=== PATIENT | male | born 1980 | race African-American/Black ===

== ENCOUNTER 2016-09-30 23:25 | Inpatient (IN) | payer OTHER ==
--- NOTE | ~2016-09-30 | CO ---
Unit #: [id number] #: [id number] Patient: LEATHA THOMPSON [id number] [address] [place], [place] [address] [id number] I MR#: [id number] NAME: LEATHA THOMPSON ROOM: 215 Age: 36 Sex: M Admission Date: 10/01/2016 : 1980 Attending Physician: Yojana Nowak M.D. Consultation Date: 10/01/2016 CONSULTATION REPORT REASON FOR CONSULTATION Diabetic ketoacidosis. HISTORY OF PRESENT ILLNESS Mr. Clive Abdi is a 36-year-old, black male, who has a history of type 1 diabetes mellitus, multiple admissions with diabetic ketoacidosis, history of alcohol abuse, poor compliance, who presented to the emergency room with a chief complaint of nausea, vomiting, or abdominal pain, unable to keep anything p.o. for 4 days duration. I am not sure if the patient has been taking his insulin or not in this admission. He has been found to have the abnormal labs. On his labs, he was found to be blood glucose level of above 1000 and acute renal failure with creatinine of 2.2 and severe diabetic ketoacidosis with severe metabolic acidosis and hyperkalemia, has been started on insulin drip and IV fluids and transferred to the unit bed. I have been asked to see the patient. He is sleeping at this time. REVIEW OF SYSTEMS The patient is sleeping, unable to obtain the review of systems from the patient. MEDICAL HISTORY Please see HPI. HOME MEDICATIONS I am not sure how much insulin the patient is taking at this time at home. SOCIAL HISTORY He continues to use tobacco and alcohol. Denies any illicit drugs. PHYSICAL EXAMINATION GENERAL: He is lying comfortably in the bed. No acute distress. VITAL SIGNS: Temperature 98.3, pulse 86, respirations 15, blood pressure 147/78. HEENT: EOMI. Pupils are equally reactive to light. NECK: Supple. No thyromegaly noted. CHEST: Good air entry. CVS: Regular rhythm. No murmurs. S1, S2. ABDOMEN: Soft and nontender. Bowel sounds positive. EXTREMITIES: No ulcers noted. No amputations. DIAGNOSTIC STUDIES LABORATORY RESULTS: Reviewed on admission. Currently, the patient's glucose is 285, BUN is 32, creatinine 1.3, CO2 is 13, total bilirubin is Unit #: [id number] #: [id number] Patient: LEATHA THOMPSON 9.4, albumin is 5.3, positive ketones, lactic acid 2.9, A1c is 11.2, bicarb is 13. ASSESSMENT 1. Diabetic ketoacidosis, improving. 2. Acute kidney injury, improving. 3. Hyperkalemia, resolved. 4. Alcohol abuse. 5. 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 PLAN Continue insulin drip at this point. Continue IV hydration. Monitor electrolytes. Replace potassium, magnesium and phosphorus as needed. Accu-Cheks every hourly. Once the patient is awake and alert, and able to take p.o. and his DKA has resolved, will be switched to the subcu insulin and diet will be initiated. Thanks again for consultation. Dictated by... Froylan Justice/jd TD: 10/02/2016 05:50 JOB #: [id number] CONSULTATION REPORT Page 1 of 1 X Giovanna Beatty MD X CONSULTATION REPORT
--- NOTE | ~2016-09-30 | DS ---
Unit #: [id number] #: [id number] Patient: LEATHA THOMPSON [id number] [address] [address] [id number] I MR#: [id number] NAME: LEATHA THOMPSON ROOM: 215 Age: 36 Sex: M Admission Date: 10/01/2016 : 1980 Discharge Date: 10/03/2016 Attending Physician: Yojana Nowak M.D. Primary Care Physician: No Primary Care Physician DISCHARGE SUMMARY FINAL DIAGNOSES 1. Diabetic ketoacidosis which is resolved. 2. Uncontrolled diabetes mellitus type 1. 3. Abdominal pain, possible gastroparesis. 4. Nausea/vomiting which is improved. 5. Acute kidney failure which is improved. 6. Alcohol abuse. 7. Tobacco abuse. LAB WORKUP ON DISCHARGE BUN 16, creatinine 0.8. On admission, patient's BUN was 47 and creatinine was 2.2. Blood cultures - no growth. CBC shows WBC 6.1, hemoglobin 11.4, hematocrit 36.6, platelet count of 160. Lactic acid on admission was 2.6. Hemoglobin A1c 11.2. HOSPITAL COURSE Mr. Leatha Thompson is a 36-year-old -[place] male who has a history of type 1 diabetes mellitus and multiple admissions with diabetic ketoacidosis, history of alcohol abuse, history of poor compliance, presented to ER with a complaint of nausea, vomiting and abdominal pain. The patient was unable to keep anything p.o. for a few days. He was found to be in DKA. Patient's creatinine was 2.2. He had severe diabetic ketoacidosis with severe metabolic acidosis and hyperkalemia. The patient was started on insulin drip and IV fluids and transferred to unit. Dr. Beatty was consulted. Medications were adjusted as per his conditions. The patient is being discharged home as he is stable at this time on above medications: 1. Folic acid 1 mg p.o. daily. 2. Thiamine 100 mg p.o. daily. 3. Insulin will be as per Dr. Beatty but his home dose is Novolin 70/30, 30 units subcu daily, and NovoLog 10 units subcu with meals and NovoLog sliding scale. Tobacco cessation counseling has been done. The patient received nicotine patch during hospitalization. Unit #: [id number] #: [id number] Patient: LEATHA THOMPSON Alcohol cessation counseling has been done. EXAMINATION ON DISCHARGE Blood pressure 153/83, respiratory rate 20, pulse is 77, temperature 99.1. CHEST has fair air entry, no additional sounds. CVS is regular. ABDOMEN is soft. No tenderness. DISCHARGE INSTRUCTIONS 1. The patient is being discharged home in stable condition. Follow up with primary care provider in one week. 2. Tobacco cessation counseling done. Dictated by... Yojana Nowak M.D. ELDA/braulio TD: 10/04/2016 07:31 JOB #: [id number] DISCHARGE SUMMARY Page 1 of 1 X Yojana Nowak MD X DISCHARGE SUMMARY
--- NOTE | ~2016-09-30 | HP ---
Unit #: [id number] #: [id number] Patient: LEATHA THOMPSON [id number] [address] [place], [place] [address] [id number] I MR#: [id number] NAME: LEATHA THOMPSON. ROOM: [facility] Age: 36 Sex: M Admission Date: 10/01/2016 : 1980 Attending Physician: Yojana Nowak M.D. Primary Care Physician: Primary Care Physician No HISTORY AND PHYSICAL CHIEF COMPLAINT Abdominal pain and vomiting. HISTORY OF PRESENT ILLNESS This 36-year-old male with history of diabetes mellitus type 1 has had multiple admissions because of DKA. The patient has not been feeling well for the last four days. He started having vomiting, one whole day he was vomiting. Then, after that vomiting stopped, started having abdominal pain. It was waxing and waning and he could not tolerate it. EMS was called and patient was brought to ER and was admitted to ICU for diabetic ketoacidosis. According to him, he still has abdominal pain but it has improved. He is still feeling very nauseous, he needs some medications. His vomiting did have some blood streaks. He has not been able to eat for the last few days. PAST MEDICAL HISTORY 1. Diabetes mellitus type 1. 2. Alcohol abuse. PAST SURGICAL HISTORY History of left rotator cuff repair. HOME MEDICATIONS 1. NovoLog 10 units subcu with meals. 2. Novolin 70/30 subcu daily. ALLERGIES No known drug allergies but oxycodone causes nausea. SOCIAL HISTORY The patient has history of alcohol abuse. He drinks a lot according to the who is in the room. He has not had drinks for the last one week. He smokes one-half pack per day, has been smoking for some time. No history of drug abuse. FAMILY HISTORY Patient's uncle has diabetes mellitus. REVIEW OF SYSTEMS CONSTITUTIONAL: No history of fever, chills, or rigors. No dizziness or syncopal episode. No history of ENT: No ear, nose, throat problem. CARDIOVASCULAR: No history of chest pain. No history of palpitations. No dizziness or syncopal episode. Unit #: [id number] #: [id number] Patient: LEATHA THOMPSON GASTROINTESTINAL: No history of diarrhea or constipation. GENITOURINARY: No history of polyuria or dysuria. SKIN: No history of any skin problem. PHYSICAL EXAMINATION VITAL SIGNS: Blood pressure 142/77, respiratory rate 18, pulse 92, temperature 97.7. GENERAL: The patient is being evaluated in room 21, ICU. Seems to be stable. Patient is very drowsy and sleepy. HEAD: Normocephalic. Eye movements are normal. NECK: Supple. No carotid bruits, no thyromegaly. Trachea is midline. CHEST: Fair air entry, no additional sounds. HEART: S1, S2 positive, regular rhythm, tachycardia. ABDOMEN: Soft, mild tenderness. Bowel sounds are positive in all quadrants. EXTREMITIES: Negative edema. Pulses are palpable. NEUROLOGIC: Awake, alert, oriented x3. No focal neurologic deficit. DIAGNOSTIC STUDIES LABORATORY: Urinalysis shows more than 1000 glucose. ABG shows pH 7.12, pCO2 of 15.5, oxygen saturation 95%. Lactic acid 2.9. WBC 6.3, hemoglobin 13.5, hematocrit 44.8, platelet count 233. Sodium 127, potassium 6.0, chloride 86, BUN 47, creatinine 2.2, ASSESSMENT AND PLAN The patient is being admitted to ICU with: 1. Diabetic ketoacidosis. 2. Acute renal failure secondary to decreased intravascular volume. 3. Intractable vomiting and abdominal pain. 4. Alcohol abuse. PLAN 1. Admit to ICU. 2. Dr. Beatty has been consulted. 3. Patient is being started on insulin drip. 4. IV Zofran on a p.r.n. basis. 5. Patient is n.p.o. 6. IV fluids are being given. 7. Alcohol cessation counseling done. 8. Please refer to progress note for further orders. 9. Plan of care has been discussed with patient. Dictated by Yojana Nowak M.D. Unit #: [id number] #: [id number] Patient: LEATHA THOMPSON ELDA/blanca TD: 10/01/2016 20:08 JOB #: [id number] HISTORY AND PHYSICAL Page 1 of 1 X Yojana Nowak MD HISTORY AND PHYSICAL
--- NOTE | ~2016-09-30 | CR72 ---
[facility] A Service of [facility] & [facility] RADIOLOGY TEXT RESULTS PATIENT: LEATHA THOMPSON LOCATION: [place] [address] : [birth year] UNIT #: [id number] AGE: [address]: Yojana Nowak MD SEX: M ORDER DR: [id number] [facility] [address] [address] [facility]. [place], [place] [address] [id number] I MR#: [id number] Acc #: [id number] NAME: LEATHA THOMPSON. : 1980 SEX: M STUDY DATE/TIME: 10/01/2016 4:01 UNIT: [facility] ROOM: [facility] STUDY DESCRIPTION: CR Chest Single View Portable Attending Physician: Yojana Nowak M.D. Ordering Physician: Yojana Nowak M.D. Primary Care Physician: Primary Care Physician No MEDICAL IMAGING REPORT This report is preliminary unless electronic signature is present EXAM AP portable chest 10/01/2016 HISTORY 36-year-old male with diabetic ketoacidosis, chest pain. Symptoms present since Tuesday. COMPARISON AP portable chest 07/17/2015. FINDINGS A single AP portable view of the chest shows both lungs to be clear. The heart is normal in size. The mediastinal contour is normal. No significant bone abnormalities are seen. IMPRESSION Normal portable chest. Dictated by... Lisbeth Harris M.D. THIS IS AN ELECTRONICALLY VERIFIED REPORT Lisbeth Harris M.D. at 10/06/2016 4:12 PM SUPRIYA/jere TD: 10/01/2016 09:16 JOB #: [id number] MEDICAL IMAGING REPORT Page 1 of 1 COPY
--- NOTE | ~2016-09-30 | EKG ---
PATIENT: LEATHA THOMPSON UNIT #: [id number] Ventricular Rate: 117 BPM Atrial Rate: 117 BPM P-R Interval: 130 ms QRS Duration: 80 ms Q-T Interval: 304 ms QTC Calculation(Bezet): 424 ms Calculated R [place]: 132 degrees Calculated T [place]: 62 degrees Diagnosis Line: Suspect arm lead reversal, interpretation Diagnosis Line: assumes no reversal Diagnosis Line: Sinus tachycardia Diagnosis Line: Lateral infarct , age undetermined Diagnosis Line: Abnormal ECG Diagnosis Line: No previous ECGs available Diagnosis Line: Confirmed by LUIS ALBERTO MURILLO MD ([id number]) on 10/03/2016 Diagnosis Line: 4:01:37 PM INTERPRETING MD: LIDIA MORRELL
--- NOTE | ~2016-09-30 | A ---
[facility] Nutrition Therapy DATE: 10/01/16 Patient: LEATHA THOMPSON Physician: CARLIN Address: [address] [facility] Room/Bed: [address], Zip: [place] [address] Admit Date: 10/01/16 Date of : [birth year] Height: 5 6 Weight: 128 58.5 NUTRITIONAL ASSESSMENT: REASON: Seen due to NPO status in ICU, Dx Admitting Dx: 36 y/o male admitted with DKA PMH: (No new H&P) DKA, T1DM, daily ETOH use, tobacco use Anthropometrics: Ht: 66", Wt: 58.5 kg (128 lbs), BMI: 20 (normal) Past weights: 128-160 lbs Labs: Na 130, K+ 5.4, Glucose 825, POC 313-551, BUN 45, Creat 2.2, Phos 6.6, GFR 43.1, A1C pending Meds: Zofran prn, PPI, Nacl, insulin drip, D50/5 w/ Nacl I/O & Bowel function: No shift assessment available yet Skin Integrity: No shift assessment available yet Assessment: Chart reviewed, events noted. Patient with prior admission for DKA, RD assessed on 03/05/15 for DKA and provided diet education, however the patient has received diet education multiple times before. No updated H&P or shift assessment available yet. Per RN patient states he had a recent adjustment to his insulin regimen as outpatient, not a non-compliant patient, very pleasant. Patient sleeping at time of RD visit to room, is currently NPO. Dr. Beatty has been consulted for DM management, patient will likely downgrade today if anion gap closes. Patient also has acute renal failure (see labs). RD will follow hospital course. Dx: Altered nutrition related lab values r/t inappropriate insulin regimen/administration AEB DKA, glucose POC 313-551 mg/dL. Intervention: Advance to 60g carb diet as tolerated, optimize insulin regimen, diet Ed? Monitoring, Evaluation and Goals: 1. Tolerance of diet advancement. 2. Maintain weight status. 3. Improvement in labs (glucose, check A1C, BUN/creat, lytes, GFR). 4. Understanding of consistent carb diet education and proper insulin dosing. Monitor: Per protocol, criteria to determine if above goals met [facility] Nutrition Therapy DATE: 10/01/16 Patient: LEATHA THOMPSON Physician: CARLIN Address: [address] [facility] Room/Bed: [address], Zip: [place] [address] Admit Date: 10/01/16 Date of : [birth year] Height: 5 6 Weight: 128 58.5 Recommendations: 1. Advance to 60g carb diet as tolerated. Will f/u to check A1C (pending at this time). 2. Optimize insulin regimen to promote adequate blood glucose control. Provided any additional insulin dosing education as needed. 3. Will offer diet education at follow-up. Patient has been educated multiple times before. Moderate nutrition risk Respectfully, Saida Bynum RD, LD [employer] [facility] [employer] cc: client file
[~2016-09-30 23:25] MED LIST: FAMOTIDINE PO; HUMULIN 70100 UNITS/ SUBQ; HYDROCHLOROTH12.5 MG PO; KETOPROFEN PO; LANTUS SOLOSTAR3 ML SUBQ; LEVEMIR SUBQ; METFORMIN PO; NEURONTIN300 MG PO; NORCO 5/325 TAB1 TAB PO; NOVOLIN 70/30 V10 M1 SUBQ; NOVOLIN 70100 UNITS/ SUBQ; NOVOLIN R100 UNITS/; NOVOLOG FL100 UNIT/1 SUBQ; NOVOLOG100 U/ML SUBQ; TIZANIDINE HCL4 M1 PO; VICODIN PO; ZESTRIL40 MG PO
[2016-09-30 23:40] LABS: URINE SOURCE CLEAN CATCH
[2016-09-30 23:47] LABS: URINE APPEARANCE CLEAR; URINE BILIRUBIN NEG (NEG); URINE BLOOD TRACE (NEG); URINE COLOR YELLOW; URINE GLUCOSE >1000 MG/DL (NEG); URINE KETONE 3+ (NEG); URINE LEUKOCYTE ESTERASE NEG (NEG); URINE NITRATE NEG (NEG); URINE PROTEIN NEG (NEG); URINE SPECIFIC GRAVITY 1.029 (1.003-1.035); URINE UROBILINOGEN 0.2 MG/DL (NEG)
[2016-09-30 23:53] LABS: URBCS1 AUWI 0-2 /[HPF] (0-2); URINE BACTERIA AUWI NEG (NEGATIVE); URINE SQUAMOUS EPITHELIAL CELL NONE SEEN /[HPF]; UWBCS1 AUWI 0-2 (0-5)
[2016-10-01 00:05] LABS: CULTURE INDICATED? NO
[2016-10-01 01:37] LABS: ARTERIAL BLOOD GAS CARBOXY HB 1.7 %sat (0.0-9.0); ARTERIAL BLOOD GAS HCO3 5.1 mmol/L; ARTERIAL BLOOD GAS MET HB 1.1 %sat (0.0-2.0)
[2016-10-01 01:38] LABS: ARTERIAL BLOOD GAS pH 7.129 (7.350-7.450)
[2016-10-01 01:39] LABS: ARTERIAL BLOOD GAS ALLEN TEST NORMAL; ARTERIAL BLOOD GAS ART SITE LEFT RADIAL; ARTERIAL BLOOD GAS PCO2 15.5 mmHg (35.0-45.0); ARTERIAL DRAW? YES
[2016-10-01 02:34] LABS: BASOPHIL% 0.1 % (0-2.5); HEMOGLOBIN 13.5 gm/dL (13.0-16.0); LYMPHOCYTE# 0.3 X10e3 (1.0-3.5); MEAN PLATELET VOLUME 10.9 FL (6.5-11.5); MONOCYTE# 0.5 X10e3 (0-1.0); NEUTROPHIL# 5.4 X10e3 (1.5-7.1); NEUTROPHIL% 86.9 % (40-75); PLATELET COUNT 233 X10e3 (140-420); RED BLOOD COUNT 5.56 X10e (3.90-5.60); WHITE BLOOD COUNT 6.3 X10e3 (4.0-10.5)
[2016-10-01 02:54] LABS: HEMATOCRIT 44.8 % (38.0-50.0)
[2016-10-01 02:55] LABS: MEAN CELL VOLUME 80.5 FL (83-96); MEAN CORPUSCULAR HGB CONC 30.1 g/dL (30-36)
[2016-10-01 02:56] LABS: DIFF IND NO; MEAN CORPUSCULAR HEMOGLOBIN 24.3 PG (28-34)
[2016-10-01 03:00] LABS: ALBUMIN SERUM 5.3 g/dL (3.5-5.0); ALKALINE PHOSPHATASE 84 U/L (32-92); ALT (SGPT) 18 U/L (10-40); AST (SGOT) 14 U/L (10-42); BILIRUBIN, DIRECT 0.1 mg/dL (0.0-0.2); BILIRUBIN,INDIRECT 1.9 mg/dL (0.0-0.9); BLOOD UREA NITROGEN 47 mg/dL (9-23); BUN/CREATININE RATIO 21.36; CALCIUM SERUM 9.8 mg/dL (8.4-10.2); CHLORIDE 86 mmol/L (100-111); CREATININE SERUM 2.2 mg/dL (0.6-1.4); GLOM FILT RATE Estimated 43.1 mL/min (>60); LIPASE 13 U/L (22-51); PROTEIN TOTAL SERUM 9.4 g/dL (6.0-8.3); SODIUM 127 mmol/L (135-145)
[2016-10-01 03:01] LABS: ALCOHOL BLOOD <5 mg/dL (0); AMYLASE 5 U/L (0-46); CARBON DIOXIDE 7 mmol/L (22-31); GLUCOSE FASTING 1009 mg/dL (70-110)
[2016-10-01 03:04] LABS: POC - CKMB 1.7 ng/mL (0.0-7.9); POC - TROPONIN <0.05 ng/mL (<=0.05)
[2016-10-01 06:19] LABS: BETA HYDROXYBUTYRATE 14.69 MMOL/L (0.02-0.27); BUN/CREATININE RATIO 20.45; CALCIUM SERUM 9.1 mg/dL (8.4-10.2); CREATININE SERUM 2.2 mg/dL (0.6-1.4); GLOM FILT RATE Estimated 43.1 mL/min (>60); POTASSIUM 5.4 mmol/L (3.5-5.1)
[2016-10-01 11:36] LABS: BUN/CREATININE RATIO 24.61; CALCIUM SERUM 8.5 mg/dL (8.4-10.2); CREATININE SERUM 1.3 mg/dL (0.6-1.4); GLOM FILT RATE Estimated 81.4 mL/min (>60); POTASSIUM 4.9 mmol/L (3.5-5.1)
[2016-10-01 16:59] LABS: BUN/CREATININE RATIO 26.66; CALCIUM SERUM 8.7 mg/dL (8.4-10.2); CREATININE SERUM 0.9 mg/dL (0.6-1.4); GLOM FILT RATE Estimated 126.9 mL/min (>60)
[2016-10-01 17:00] LABS: POTASSIUM 3.2 mmol/L (3.5-5.1)
[2016-10-01 23:53] LABS: PHOSPHOROUS 1.1 mg/dL (2.5-4.6); POTASSIUM 3.8 mmol/L (3.5-5.1)
[2016-10-02 04:07] LABS: BASOPHIL% 0.4 % (0-2.5); EOSINOPHIL# 0.1 X10e3 (0-0.7); EOSINOPHIL% 0.9 % (0.0-7.0); HEMATOCRIT 36.6 % (38.0-50.0); LYMPHOCYTE# 1.4 X10e3 (1.0-3.5); MEAN CORPUSCULAR HEMOGLOBIN 24.3 PG (28-34); MEAN CORPUSCULAR HGB CONC 31.2 g/dL (30-36); MONOCYTE# 0.6 X10e3 (0-1.0); MONOCYTE% 9.4 % (3.0-12.0); NEUTROPHIL% 66.3 % (40-75); PLATELET COUNT 160 X10e3 (140-420); RED BLOOD COUNT 4.69 X10e (3.90-5.60); RED CELL DISTRIBUTION WIDTH 13.5 % (11.0-15.5); WHITE BLOOD COUNT 6.1 X10e3 (4.0-10.5)
[2016-10-02 04:08] LABS: DIFF IND NO; HEMOGLOBIN 11.4 gm/dL (13.0-16.0)
[2016-10-02 04:31] LABS: CREATININE SERUM 0.8 mg/dL (0.6-1.4); GLOM FILT RATE Estimated 133.3 mL/min (>60); MAGNESIUM 2.1 mg/dL (1.6-3.0); POTASSIUM 3.7 mmol/L (3.5-5.1)
[2016-10-03 05:50] LABS: CALCIUM SERUM 9.5 mg/dL (8.4-10.2); CREATININE SERUM 0.8 mg/dL (0.6-1.4); GLOM FILT RATE Estimated 133.3 mL/min (>60); MAGNESIUM 2.1 mg/dL (1.6-3.0); POTASSIUM 3.4 mmol/L (3.5-5.1)
[2016-10-03] MEDS ORDERED: FOLIC ACID1 MG PO (15:36)
[2016-10-03] MEDS ORDERED: THIAMINE HCL100 M1 PO (15:38)
== END 2016-10-03 17:34 | disposition home or self-care (01) | DRG 638 ==
LOC: CED 23:25 → CEDOF 10-01 03:20 → CICCU3 10-01 06:50 → C2A 10-02 04:44
PROVIDERS: Emergency Medicine; Physician Assistant Medical
DX: E10.10 Type 1 diabetes mellitus with ketoacidosis without coma (principal); N17.9 Acute kidney failure, unspecified; K31.84 Gastroparesis; E10.43 Type 1 diabetes mellitus with diabetic autonomic (poly)neuropathy; E87.5 Hyperkalemia; Z79.4 Long term (current) use of insulin; F10.10 Alcohol abuse, uncomplicated; F17.210 Nicotine dependence, cigarettes, uncomplicated; K70.9 Alcoholic liver disease, unspecified; Z71.41 Alcohol abuse counseling and surveillance of alcoholic; Z71.6 Tobacco abuse counseling; Z83.3 Family history of diabetes mellitus
CPT/HCPCS: 36600; 71010; 80048; 80076; 81003; 82010; 82150; 82553; 82803; 82947; 83036; 83605; 83690; 83735; 84100; 84132; 84484; 85025; 87040; 93005; 96361; 96374; 96375; 99284; C9113; G0480; J1815; J2405

== ENCOUNTER 2016-10-30 16:55 | Emergency (ER) | payer OTHER ==
--- NOTE | ~2016-10-30 | CR72 ---
[facility] A Service of [facility] & [facility] RADIOLOGY TEXT RESULTS PATIENT: LEATHA THOMPSON LOCATION: [facility] : [birth year] UNIT #: [id number] AGE: [address]: Kristin Miles MD SEX: M ORDER DR: [id number] [facility] [address] [place], [place] [address] [id number] E MR#: [id number] Acc #: [id number] NAME: LEATHA THOMPSON : 1980 SEX: M STUDY DATE/TIME: 10/30/2016 18:39 UNIT: [facility] ROOM: STUDY DESCRIPTION: CR Chest Single View Portable Attending Physician: Kristin Miles M.D. Ordering Physician: Kristin Miles M.D. Primary Care Physician: No Primary Care Physician MEDICAL IMAGING REPORT This report is preliminary unless electronic signature is present EXAM Chest portable 10/30/2016 1839 hours HISTORY 36-year-old man with complaint of shortness of air with syncopal episode today. COMPARISON 10/01/2016 FINDINGS A single upright portable view demonstrates normal cardiac, mediastinal and hilar contours. There are a few scattered calcified granulomata in the lungs which are stable. There is no acute pulmonary density, pleural effusion or pneumothorax. IMPRESSION No acute cardiopulmonary findings. No appreciable change from 10/01/2016. Dictated by... Mita Heath M.D. THIS IS AN ELECTRONICALLY VERIFIED REPORT Mita Heath M.D. at 10/31/2016 6:58 PM RAINA/german TD: 10/31/2016 04:27 JOB #: [id number] MEDICAL IMAGING REPORT Page 1 of 1 COPY
--- NOTE | ~2016-10-30 | EKG ---
PATIENT: LEATHA THOMPSON UNIT #: [id number] Ventricular Rate: 72 BPM Atrial Rate: 72 BPM P-R Interval: 142 ms QRS Duration: 80 ms Q-T Interval: 398 ms QTC Calculation(Bezet): 435 ms P Pollock: 75 degrees Calculated R Pollock: 88 degrees Calculated T Pollock: 5 degrees Diagnosis Line: Normal sinus rhythm with sinus arrhythmia Diagnosis Line: Normal ECG Diagnosis Line: When compared with ECG of 30-SEP-2016 23:16, Diagnosis Line: Vent. rate has decreased BY 45 BPM Diagnosis Line: QRS axis Shifted left Diagnosis Line: T wave inversion now evident in Inferior leads Diagnosis Line: T wave amplitude has decreased in Anterior leads Diagnosis Line: Confirmed by RALPH BELLA MD ([id number]) on Diagnosis Line: 10/31/2016 10:05:37 PM INTERPRETING MD: HAYDEE
--- NOTE | ~2016-10-30 | CT71 ---
[facility] A Service of [facility] / [facility] RADIOLOGY TEXT RESULTS PATIENT: LEATHA THOMPSON LOCATION: [facility] : [birth year] UNIT #: [id number] AGE: [address]: Kristin Miles MD SEX: M ORDER DR: [id number] [facility] [address] [place], [place] [address] [id number] E MR#: [id number] Acc #: [id number] NAME: LEATHA THOMPSON. : 1980 SEX: M STUDY DATE/TIME: 10/30/2016 21:14 UNIT: [facility] ROOM: STUDY DESCRIPTION: CT Head Wo Contrast Attending Physician: Kristin Miles M.D. Ordering Physician: Kristin Miles M.D. Primary Care Physician: No Primary Care Physician MEDICAL IMAGING REPORT This report is preliminary unless electronic signature is present EXAM CT head. HISTORY Syncope at work, fell, hit back of head, 10/30/2016. TECHNIQUE CT head performed skull base through vertex without intravenous contrast. This CT exam was performed with one or more of the following radiation dose reduction techniques: automatic exposure control, adjustment of mA and/or kV according to patient size, and iterative reconstruction. COMPARISON 02/26/2014 FINDINGS Brainstem unremarkable. Cerebellum and cerebral hemispheres show normal acosta matter-white matter differentiation. No hemorrhage. No evidence of acute cortical ischemia. Midline structures nondisplaced. Basal ganglia intact. Ventricles, cisterns, and sulci normal in size and contour. No intra or extraaxial mass effect. No abnormal intracranial fluid collection. There is a curvilinear density superimposed over the right superolateral eyeball closely associated with insertion of the right lateral rectus muscle. This is new compared to prior examination. Please correlate with any ocular intervention. This does not have an appearance typical for hemorrhage. There is no history given of orbital trauma. Remainder of the intraorbital soft tissues are unremarkable. No periorbital soft tissue abnormality. No fracture. Visualized paranasal sinuses and mastoid air cells are clear. IMPRESSION 1. Brain appears normal. If patient has ongoing neurologic symptoms, [facility] A Service of [facility] RADIOLOGY TEXT RESULTS PATIENT: LEATHA THOMPSON [facility] [id number] : [birth year] UNIT #: [id number] AGE: [address]: Kristin Miles MD SEX: M ORDER DR: consider follow up imaging. 2. No fracture. 3. Well-delineated curvilinear radiodensity along the superolateral aspect of the right eyeball, closely associated with insertion of the right lateral rectus muscle. This does not have the appearance of traumatic hemorrhage and there is no other soft tissue abnormality in this region. This is new compared to 2013. I favor that this is some form of ophthalmic implant. Please correlate with ophthalmic history. Dictated by... Jimbo Zelaya M.D. THIS IS AN ELECTRONICALLY VERIFIED REPORT Jimbo Zelaya M.D. at 11/01/2016 11:31 AM SARBJIT/dami TD: 10/31/2016 08:41 JOB #: [id number] MEDICAL IMAGING REPORT Page 1 of 1 COPY
[~2016-10-30 16:55] MED LIST changes: +FOLIC ACID1 MG PO; +THIAMINE HCL100 M1 PO
[2016-10-30 18:40] LABS: BASOPHIL% 0.4 % (0-2.5); EOSINOPHIL# 0.1 X10e3 (0-0.7); HEMATOCRIT 31.1 % (38.0-50.0); HEMOGLOBIN 9.5 gm/dL (13.0-16.0); LYMPHOCYTE# 1.2 X10e3 (1.0-3.5); LYMPHOCYTE% 32.8 % (17.0-45.0); MEAN CELL VOLUME 83.3 FL (83-96); MEAN CORPUSCULAR HEMOGLOBIN 25.5 PG (28-34); MEAN CORPUSCULAR HGB CONC 30.6 g/dL (30-36); MEAN PLATELET VOLUME 10.4 FL (6.5-11.5); MONOCYTE# 0.4 X10e3 (0-1.0); NEUTROPHIL# 1.9 X10e3 (1.5-7.1); NEUTROPHIL% 52.8 % (40-75); PLATELET COUNT 166 X10e3 (140-420); RED BLOOD COUNT 3.74 X10e (3.90-5.60); RED CELL DISTRIBUTION WIDTH 18.3 % (11.0-15.5); WHITE BLOOD COUNT 3.7 X10e3 (4.0-10.5)
[2016-10-30 18:44] LABS: DIFF IND NO
[2016-10-30 19:04] LABS: URINE SOURCE CLEAN CATCH
[2016-10-30 19:12] LABS: ALBUMIN SERUM 4.1 g/dL (3.5-5.0); ALKALINE PHOSPHATASE 49 U/L (32-92); ALT (SGPT) 10 U/L (10-40); AST (SGOT) 16 U/L (10-42); BILIRUBIN,TOTAL 0.9 mg/dL (0.2-2.0); BLOOD UREA NITROGEN 9 mg/dL (9-23); BUN/CREATININE RATIO 11.25; CALCIUM SERUM 9.2 mg/dL (8.4-10.2); CARBON DIOXIDE 28 mmol/L (22-31); CHLORIDE 100 mmol/L (100-111); CREATININE SERUM 0.8 mg/dL (0.6-1.4); GLOM FILT RATE Estimated 133.3 mL/min (>60); GLUCOSE FASTING 419 mg/dL (70-110); POTASSIUM 4.3 mmol/L (3.5-5.1); PROTEIN TOTAL SERUM 6.8 g/dL (6.0-8.3); SODIUM 136 mmol/L (135-145)
[2016-10-30 19:14] LABS: BILIRUBIN, DIRECT <0.1 mg/dL (0.0-0.2); BILIRUBIN,INDIRECT 0.8 mg/dL (0.0-0.9)
[2016-10-30 19:24] LABS: POC - CKMB <1.0 ng/mL (0.0-7.9); POC - TROPONIN <0.05 ng/mL (<=0.05)
[2016-10-30 19:32] LABS: URINE APPEARANCE CLEAR; URINE BILIRUBIN NEG (NEG); URINE BLOOD NEG (NEG); URINE COLOR YELLOW; URINE GLUCOSE >1000 MG/DL (NEG); URINE KETONE NEG (NEG); URINE LEUKOCYTE ESTERASE NEG (NEG); URINE NITRATE NEG (NEG); URINE PH 5.5 (5-8); URINE PROTEIN NEG (NEG); URINE SPECIFIC GRAVITY 1.036 (1.003-1.035); URINE UROBILINOGEN 0.2 MG/DL (NEG)
[2016-10-30 19:41] LABS: CULTURE INDICATED? NO
[2016-10-30 19:46] LABS: AMPHETAMINE NEG (NEG); BARBITURATES NEG (NEG); BENZODIAZEPINES NEG (NEG); COCAINE NEG (NEG); MARIJUANA NEG (NEG); OPIATES NEG (NEG); TRICYCLIC ANTIDEPRESSANTS NEG (NEG); U METHADONE NEG (NEG)
[2016-10-30 20:03] LABS: POC - CKMB <1.0 ng/mL (0.0-7.9); POC - TROPONIN <0.05 ng/mL (<=0.05)
== END 2016-10-30 22:45 | disposition home or self-care (01) ==
LOC: CED 16:55
PROVIDERS: Emergency Medicine
DX: R73.9 Hyperglycemia, unspecified (principal); R55 Syncope and collapse; W19.XXXA Unspecified fall, initial encounter; Y92.69 Other specified industrial and construction area as the place of occurrence of the external cause; Y99.0 Civilian activity done for income or pay
CPT/HCPCS: 36415; 70450; 71010; 80048; 80076; 80307; 81003; 82553; 82947; 84484; 85025; 93005; 96361; 96374; 99284

== ENCOUNTER 2016-12-15 22:29 | Emergency (ER) | payer OTHER ==
[~2016-12-15] VITALS: Ht 170.2 cm; Wt 63.5 kg
[2016-12-16 02:28] LABS: BASOPHIL% 0.4 % (0-2.5); EOSINOPHIL% 1.1 % (0.0-7.0); HEMATOCRIT 38.3 % (38.0-50.0); HEMOGLOBIN 11.8 gm/dL (13.0-16.0); LYMPHOCYTE# 2.2 X10e3 (1.0-3.5); LYMPHOCYTE% 49.8 % (17.0-45.0); MEAN CELL VOLUME 79.5 FL (83-96); MEAN CORPUSCULAR HEMOGLOBIN 24.4 PG (28-34); MEAN CORPUSCULAR HGB CONC 30.7 g/dL (30-36); MEAN PLATELET VOLUME 9.8 FL (6.5-11.5); MONOCYTE# 0.2 X10e3 (0-1.0); MONOCYTE% 5.6 % (3.0-12.0); NEUTROPHIL# 1.9 X10e3 (1.5-7.1); NEUTROPHIL% 43.1 % (40-75); PLATELET COUNT 132 X10e3 (140-420); RED BLOOD COUNT 4.81 X10e (3.90-5.60); RED CELL DISTRIBUTION WIDTH 14.2 % (11.0-15.5); WHITE BLOOD COUNT 4.4 X10e3 (4.0-10.5)
[2016-12-16 02:29] LABS: DIFF IND NO
[2016-12-16 03:10] LABS: ALBUMIN SERUM 4.4 g/dL (3.5-5.0); BILIRUBIN, DIRECT 0.1 mg/dL (0.0-0.2); BILIRUBIN,INDIRECT 0.6 mg/dL (0.0-0.9); BILIRUBIN,TOTAL 0.7 mg/dL (0.2-2.0); CALCIUM SERUM 8.9 mg/dL (8.4-10.2); GLOM FILT RATE Estimated 111.7 mL/min (>60); POTASSIUM 4.2 mmol/L (3.5-5.1); PROTEIN TOTAL SERUM 7.8 g/dL (6.0-8.3)
== END 2016-12-16 03:00 | disposition home or self-care (01) ==
LOC: CED 22:29
PROVIDERS: Emergency Medicine
DX: E11.65 Type 2 diabetes mellitus with hyperglycemia (principal); F10.129 Alcohol abuse with intoxication, unspecified; F17.200 Nicotine dependence, unspecified, uncomplicated
CPT/HCPCS: 36415; 80048; 80076; 82947; 85025; 96361; 96374; 99284; G0480